=== PATIENT | male | born 1970 | race Caucasian/White ===

== ENCOUNTER 2020-11-20 14:23 | Outpatient (RCR) | payer OTHER, SELFPAY | END 2021-01-26 23:59 | LOC: IMMUN 14:23 | PROVIDERS: PCP Nurse Practitioner Primary Care; Visit Provider Family Medicine | DX: Z23 Encounter for immunization (principal) | CPT/HCPCS: 0001A; 0002A; 91300 ==

== ENCOUNTER → 2022-06-20 | Outpatient (CLI) | payer BC, SELFPAY ==
--- NOTE | 2022-06-20 07:52 | RAD_ITS ---
PROCEDURE: Fluoroscopic guided Hip Injection DATE: 06/20/2022. INDICATION: Male, 52 years old. Chronic right hip pain. PHYSICIAN: Darius Adler M.D. MEDICATIONS: 40 mg of KENALOG and 2 cc of 0.5% MARCAINE. 2% Lidocaine administered subcutaneously for local anesthesia. ACCESS SITE: Right hip. NEEDLE: 22-gauge spinal needle. FLUOROSCOPY TIME (if supplied): (0:26) minutes/seconds. One image was obtained. FINDINGS: The risks, benefits, and alternatives to the procedure were explained to the patient. The specific risks of bleeding, infection, and neurovascular injury were detailed and accepted. Witnessed informed consent was obtained. A 22-gauge spinal needle was positioned under radiographic fluoroscopic localization. Approximately 2 cc of ISOVUE-300 instilled for localization purposes. Medication was then injected. The patient tolerated the procedure well without any immediate complications. RAD/Inj/Asp Silvano Jt Should/Hip/Knee IMPRESSION: 1. Successful fluoroscopic guided hip injection. Electronically Signed: Darius Adler MD at 10:29 EDT ,
[2022-06-20] MEDS: Lidocaine 2% (5ml sdv) 5 ML VIAL.MPF INFILT (08:03)
[2022-06-20] MEDS: Bupivacaine Mpf 0.5% 30 ML VIAL OPERA.SITE (08:03)
[2022-06-20] MEDS: Triamcinolone Acetonide 40 MG/ML Vial OPERA.SITE (08:03)
== END | disposition home or self-care (01) ==
PROVIDERS: PCP Nurse Practitioner Primary Care; Referring Provider Orthopaedic Surgery; Visit Provider Orthopaedic Surgery
DX: M16.11 Unilateral primary osteoarthritis, right hip (principal)
CPT/HCPCS: 20610; 77002; Q9967